=== PATIENT | male | born 1955 | race Caucasian/White ===

== ENCOUNTER 2021-11-12 12:18 | Outpatient (CLI) | payer OTHER | END 2021-11-12 12:21 | disposition home or self-care (01) | LOC: SONOGRAMA 12:18 | PROVIDERS: ATTEND Pathology Anatomic Pathology & Clinical Pathology | DX: E04.2 Nontoxic multinodular goiter (principal) ==

== ENCOUNTER 2024-06-11 13:01 | Emergency (ER) | payer OTHER ==
[~2024-06-11] VITALS: Ht 185.4 cm; Wt 138.3 kg
[2024-06-11] MEDS ORDERED: COZAAR100 MG PO (13:30)
[2024-06-11] MEDS ORDERED: GLUMETZA500 MG PO (13:30)
[2024-06-11] MEDS ORDERED: JARDIANCE10 MG PO (13:30)
[2024-06-11] MEDS ORDERED: SINGULAIR10 MG PO (13:31)
[2024-06-11] MEDS ORDERED: SULFASALAZINE500 M1 PO (13:31)
[2024-06-11] MEDS ORDERED: TENORMIN50 M1 PO (13:31)
[2024-06-11] MEDS ORDERED: DIALYVITE TABL1 EACH PO (13:31)
[2024-06-11] MEDS ORDERED: FAMOTIDINE/PF 20 MG/2 ML VIAL IV ONE (15:00)
[2024-06-11] MEDS ORDERED: DIPHENHYDRAMINE HCL 50 MG/ML VIAL 1ML IV ONE (15:00)
[2024-06-11] MEDS ORDERED: METHYLPREDNISOLONE SOD SUCC 125 MG VIAL IV ONE (15:00)
[2024-06-11] MEDS ORDERED: DIPHENHYDRAMINE HCL 50 MG/ML VIAL 1ML ONE (15:44)
[2024-06-11] MEDS ORDERED: FAMOTIDINE/PF 20 MG/2 ML VIAL ONE (15:44)
[2024-06-11] MEDS ORDERED: METHYLPREDNISOLONE SOD SUCC 125 MG VIAL ONE (15:44)
[2024-06-11 16:07] LABS: HEMOGLOBIN 15.2 g/dL (13-16.00); MEAN CELL VOLUME 101.6 fL (80.0-100.00); MEAN CORPUSCULAR HEMOGLOBIN 35.9 pg (27.00-32.0); MEAN CORPUSCULAR HGB CONC 35.4 g/dl (32.0-36.0); PLATELET COUNT 195 K/uL (150-450); RED BLOOD COUNT 4.24 M/uL (4.00-6.00); RED CELL DISTRIBUTION WIDTH 14.1 % (11.5-14.5)
[2024-06-11 16:12] LABS: ERYTHROCYTE SEDIMENTATION RATE 20 mm/hr
[2024-06-11 16:34] LABS: ALBUMIN 3.6 gm/dL (3.4-5.0); BILIRUBIN TOTAL 0.58 mg/dL (0.3-1.2); CALCIUM 9.5 mg/dL (8.5-10.1); CREATININE SERUM 1.55 mg/dL (0.70-1.30); GFR 44.95; GLOBULINA 3.5 G/DL (2.4-3.5); POTASSIUM 3.79 mEq/L (3.5-5.1); TOTAL PROTEIN 7.1 gm/dL (6.4-8.2)
[2024-06-11 16:52] LABS: C-REACTIVE PROTEIN 1.22 MG/DL (0.00-0.29)
[2024-06-11] MEDS ORDERED: ALLEGRA-D 24 H1 EACH PO (18:54)
[2024-06-11] MEDS ORDERED: PEPCID AC20 MG PO (18:54)
[2024-06-11] MEDS ORDERED: BENADRYL ALLERG50 MG PO (18:54)
[2024-06-11] MEDS ORDERED: MEDROLPACK PO (18:55)
[2024-06-11] MEDS ORDERED: ALLEGRA ALLERG180 MG PO (19:04)
== END 2024-06-11 19:22 ==
LOC: ER 13:03
PROVIDERS: Nurse Practitioner Family
DX: L53.9 Erythematous condition, unspecified (principal); I10 Essential (primary) hypertension; E11.9 Type 2 diabetes mellitus without complications; Z79.84 Long term (current) use of oral hypoglycemic drugs; Z91.013 Allergy to seafood